=== PATIENT | male | born 1970 | race Caucasian/White ===

== ENCOUNTER → 2018-07-15 | Outpatient (CLI) | payer OTHER | END | disposition home or self-care (01) | LOC: CFH 08:49 | PROVIDERS: ATTEND Nurse Practitioner | DX: Z12.2 Encounter for screening for malignant neoplasm of respiratory organs (principal); R91.1 Solitary pulmonary nodule; Z87.891 Personal history of nicotine dependence | CPT/HCPCS: G0297 ==

== ENCOUNTER → 2019-02-11 | Outpatient (CLI) | payer OTHER | END | disposition home or self-care (01) | LOC: RAD 09:38 | PROVIDERS: ATTEND Nurse Practitioner | DX: Z12.2 Encounter for screening for malignant neoplasm of respiratory organs (principal); R91.8 Other nonspecific abnormal finding of lung field; Z87.891 Personal history of nicotine dependence | CPT/HCPCS: G0297 ==

== ENCOUNTER → 2019-09-21 | Outpatient (CLI) | payer OTHER | END | disposition home or self-care (01) | LOC: CFH 07:37 | PROVIDERS: ATTEND Nurse Practitioner | DX: R91.8 Other nonspecific abnormal finding of lung field (principal) | CPT/HCPCS: 71250 ==

== ENCOUNTER → 2019-12-29 | Outpatient (CLI) | payer OTHER | END | disposition home or self-care (01) | LOC: PETCFH 08:17 | PROVIDERS: ATTEND Nurse Practitioner | DX: R91.1 Solitary pulmonary nodule (principal); J43.9 Emphysema, unspecified; R59.0 Localized enlarged lymph nodes | CPT/HCPCS: 78815; A9552 ==

== ENCOUNTER 2020-01-18 12:37 | Outpatient (CLI) | payer OTHER ==
[2020-01-19] MEDS ORDERED: ALBU90AE INH (13:40)
[2020-01-19] MEDS ORDERED: DIPH-419 PO (13:40)
[2020-01-19] MEDS ORDERED: VENL150C PO (13:40)
[2020-01-19] MEDS ORDERED: depakote PO (13:40)
[2020-01-19] MEDS ORDERED: ATOR20TA37 PO (13:40)
[2020-01-19] MEDS ORDERED: LISI-167 PO (13:40)
[2020-01-19] MEDS ORDERED: VENL75CA PO (13:40)
[2020-01-19] MEDS ORDERED: TIOT18CA INH (13:40)
== END 2020-01-18 23:59 | disposition home or self-care (01) ==
LOC: RAD 12:37
PROVIDERS: ATTEND Internal Medicine
DX: R91.8 Other nonspecific abnormal finding of lung field (principal); R59.0 Localized enlarged lymph nodes
CPT/HCPCS: 71250

== ENCOUNTER 2020-01-20 11:40 | Day surgery (SDC) | payer OTHER ==
[~2020-01-20] VITALS: Ht 172.7 cm; Wt 82.4 kg
[~2020-01-20 11:40] MED LIST: ALBU90AE INH; ATOR20TA37 PO; DIPH-419 PO; LISI-167 PO; TIOT18CA INH; VENL150C PO; VENL75CA PO; depakote PO
[2020-01-20 11:55] VITALS: BP 145/95
[2020-01-20] MEDS ORDERED: LACTATED RINGERS 1,000 ML IV ONE (11:57)
[2020-01-20] MEDS ORDERED: CHLORHEXIDINE 15 ML UDC MM STA (12:01)
[2020-01-20 12:28] LABS: ALANINE AMINOTRANSFERASE 48 U/L (12-78); ALBUMIN 3.5 g/dL (3.4-5.0); ANION GAP 6 mmol/L (5-15); CALCIUM 8.6 mg/dL (8.5-10.1); CHLORIDE 109 mmol/L (98-107)
[2020-01-20 12:31] LABS: ALKALINE PHOSPHATASE 78 U/L (45-117); BILIRUBIN,TOTAL 0.8 mg/dL (0.2-1.0); CREATININE 0.98 mg/dL (0.7-1.3); TOTAL PROTEIN 7.4 g/dL (6.4-8.2)
[2020-01-20] MEDS ORDERED: MIDAZOLAM 1 MG/ML, 2ML ONE (13:27)
[2020-01-20] MEDS ORDERED: FENTANYL PF 250 MCG/5ML ONE (13:28)
[2020-01-20] MEDS ORDERED: DEXAMETHASONE 4 MG/ML, 1ML ONE (15:26)
[2020-01-20] MEDS ORDERED: ROCURONIUM 10MG/ML,5ML ONE (15:27)
[2020-01-20] MEDS ORDERED: ONDANSETRON 2MG/ML, 2ML IV PRN (16:30)
[2020-01-20] MEDS ORDERED: MEPERIDINE/PF 25MG/ML,1ML IVPush PRN (16:30)
[2020-01-20] MEDS ORDERED: PROMETHAZINE 25 MG/ML, 1ML IV PRN (16:30)
[2020-01-20] MEDS ORDERED: OXYcodone 5 MG/5 ML ORAL.SOL UDC PO PRN (16:30)
[2020-01-20] MEDS ORDERED: LABETALOL 5MG/ML, 20ML IV PRN (16:30)
[2020-01-20] MEDS ORDERED: HYDROmorphone 2 MG/ML, 1ML IVPush PRN (16:30)
[2020-01-20] MEDS ORDERED: FENTANYL PF 100 MCG/2ML IV PRN (16:30)
[2020-01-20] MEDS ORDERED: MIDAZOLAM 1 MG/ML, 2ML IV PRN (16:30)
[2020-01-20] MEDS ORDERED: hydrALAzine 20 MG/ML, 1ML IV PRN (16:30)
[2020-01-20] MEDS ORDERED: ACETAMINOPHEN 325 MG TABLET PO PRN (16:30)
[2020-01-20] MEDS ORDERED: PROPOFOL 10 MG/ML, 20ML ONE (16:48)
[2020-01-20] MEDS ORDERED: SUCCINYLCHOLINE 20 MG/ML, 10ML ONE (16:48)
[2020-01-20] MEDS ORDERED: ONDANSETRON 2MG/ML, 2ML ONE (16:48)
[2020-01-20 18:47] VITALS: BP 116/80
[2020-02-03] MEDS ORDERED: DIVA-59 PO (11:21)
[2020-02-03] MEDS ORDERED: LISI-170 PO (11:21)
== END 2020-01-20 19:45 | disposition home or self-care (01) ==
LOC: OR 11:40 → 4NE 18:12 → OR 19:45
PROVIDERS: ATTEND Internal Medicine
DX: R91.8 Other nonspecific abnormal finding of lung field (principal); R59.0 Localized enlarged lymph nodes; J44.9 Chronic obstructive pulmonary disease, unspecified; G47.33 Obstructive sleep apnea (adult) (pediatric); E88.01 Alpha-1-antitrypsin deficiency; I10 Essential (primary) hypertension; F32.9 Major depressive disorder, single episode, unspecified; F41.9 Anxiety disorder, unspecified; Z79.899 Other long term (current) drug therapy; Z87.891 Personal history of nicotine dependence; Z88.8 Allergy status to other drugs, medicaments and biological substances
CPT/HCPCS: 31624; 31627; 31628; 31652; 36415; 71045; 80053; 87015; 87070; 87102; 87116; 87205; 87206; 88112; 88172; 88173; 88177; 88305; 93005; J0330; J1100; J2250; J2405; J2704; J3010; J7120; 31625; 76000; G0378

== ENCOUNTER → 2020-02-03 | Outpatient (CLI) | payer OTHER ==
[~2020-02-03] MED LIST changes: +DIVA-59 PO; +LISI-170 PO
[2020-02-03 11:48] LABS: BASOPHILS # (AUTO) 0.04 x10^3/uL (0-0.1); BASOPHILS % (AUTO) 0 % (0-1); EOSINOPHILS # (AUTO) 0.09 x10^3/uL (0-0.4); EOSINOPHILS % (AUTO) 1 % (1-7); LYMPHOCYTES % (AUTO) 28 % (22-44); MD NO; MEAN CORPUSCULAR HEMOGLOBIN 34.3 pg (27.5-34.5); MEAN CORPUSCULAR HGB CONC 33.6 g/dL (33.2-36.2); MEAN CORPUSCULAR VOLUME 102.2 fL (81-97); MEAN PLATELET VOLUME 6.7 fL (7.4-10.4); MONOCYTES # (AUTO) 0.61 x10^3/uL (0.2-0.8); MONOCYTES % (AUTO) 6 % (2-9); NEUTROPHILS # (AUTO) 6.78 x10^3/uL (1.8-6.8); NEUTROPHILS % (AUTO) 65 % (42-75); PLATELET COUNT 246 x10^3/uL (130-400); RED BLOOD COUNT 4.95 x10^6/uL (4.38-5.82); RED CELL DISTRIBUTION WIDTH 13.6 % (9.4-14.8)
[2020-02-03 15:14] LABS: ALANINE AMINOTRANSFERASE 55 U/L (12-78); ALBUMIN 3.9 g/dL (3.4-5.0); ANION GAP 6 mmol/L (5-15); CALCIUM 9.5 mg/dL (8.5-10.1); CHLORIDE 104 mmol/L (98-107); CREATININE 1.18 mg/dL (0.7-1.3)
[2020-02-03 15:17] LABS: ALKALINE PHOSPHATASE 83 U/L (45-117); BILIRUBIN,TOTAL 0.8 mg/dL (0.2-1.0); TOTAL PROTEIN 7.9 g/dL (6.4-8.2)
== END | disposition home or self-care (01) ==
LOC: STAR 10:43
PROVIDERS: ATTEND Surgery
DX: Z01.818 Encounter for other preprocedural examination (principal); R00.0 Tachycardia, unspecified; I51.7 Cardiomegaly
CPT/HCPCS: 36415; 80053; 85025; 93005; U0001

== ENCOUNTER 2020-02-08 07:58 | Inpatient (IN) | payer OTHER ==
[~2020-02-08] VITALS: Ht 172.7 cm; Wt 91.0 kg
[2020-02-08] MEDS ORDERED: LACTATED RINGERS 1,000 ML IV SCH (08:17)
[2020-02-08 08:19] VITALS: BP 127/86
[2020-02-08] MEDS ORDERED: CHLORHEXIDINE 15 ML UDC MM ONE (08:30)
[2020-02-08] MEDS ORDERED: MIDAZOLAM 1 MG/ML, 2ML ONE (08:37)
[2020-02-08] MEDS ORDERED: FENTANYL PF 100 MCG/2ML ONE ×3 (08:37→12:58)
[2020-02-08] MEDS ORDERED: ONDANSETRON 2MG/ML, 2ML ONE (08:38)
[2020-02-08] MEDS ORDERED: DEXAMETHASONE 4 MG/ML, 1ML ONE (08:38)
[2020-02-08] MEDS ORDERED: CEFAZOLIN 1,000 MG ONE (08:38)
[2020-02-08] MEDS ORDERED: ROCURONIUM 10MG/ML,5ML ONE (08:38)
[2020-02-08] MEDS ORDERED: NEOSTIGMINE 1 MG/ML, 10ML ONE (08:38)
[2020-02-08] MEDS ORDERED: PROPOFOL 10 MG/ML, 20ML ONE (08:38)
[2020-02-08] MEDS ORDERED: GLYCOPYRROLATE 0.2MG/1ML, 5ML ONE (08:38)
[2020-02-08] MEDS ORDERED: SUCCINYLCHOLINE 20 MG/ML, 10ML ONE (08:38)
[2020-02-08] MEDS ORDERED: BUPIVACAINE/PF-EPI 0.5% 1:200K ONE (09:20)
[2020-02-08] MEDS ORDERED: PHENYLEPHRINE 10 MG/ML ONE (09:48)
[2020-02-08] MEDS ORDERED: EPINEPHRINE 1 MG/ML, 1ML ONE (09:48)
[2020-02-08] MEDS ORDERED: VASOPRESSIN 20 UNIT/ML, 1ML ONE (09:48)
[2020-02-08] MEDS ORDERED: EPHEDRINE 50 MG/ML, 1ML ONE (09:48)
[2020-02-08] MEDS ORDERED: BUPIVACAINE/PF-EPI 0.5% 1:200K INFIL ONE (10:40)
[2020-02-08] MEDS ORDERED: ALBUTEROL SULFATE 2.5 MG/3 ML ONE (11:10)
[2020-02-08] MEDS ORDERED: ALBUTEROL/IPRATROPIUM 2.5MG/0.5MG, 3 ML NPPB PRN (11:30)
[2020-02-08] MEDS ORDERED: PROMETHAZINE 25 MG/ML, 1ML IV PRN (11:30)
[2020-02-08] MEDS ORDERED: HYDROmorphone 2 MG/ML, 1ML IVPush PRN (11:30)
[2020-02-08] MEDS ORDERED: OXYcodone 5 MG/5 ML ORAL.SOL UDC PO PRN (11:30)
[2020-02-08] MEDS ORDERED: MEPERIDINE/PF 25MG/ML,1ML IVPush PRN (11:30)
[2020-02-08] MEDS ORDERED: ACETAMINOPHEN 325 MG TABLET PO PRN (11:30)
[2020-02-08] MEDS ORDERED: DIPHENHYDRAMINE 50 MG/ML, 1ML IV PRN (13:00)
[2020-02-08] MEDS ORDERED: HYDROmorphone PCA 30 MG/30 ML IV PRN (13:00)
[2020-02-08] MEDS ORDERED: ONDANSETRON 2MG/ML, 2ML IVPush PRN (13:00)
[2020-02-08] MEDS ORDERED: ENALAPRILAT 1.25 MG/ML, 2ML IV PRN (13:00)
[2020-02-08] MEDS ORDERED: LORazepam 2 MG/ML, 1ML IV PRN (13:00)
[2020-02-08] MEDS ORDERED: hydrALAzine 20 MG/ML, 1ML IV PRN (13:00)
[2020-02-08] MEDS: FENTANYL PF 100 MCG/2ML IV PRN ×3 (13:01→13:13)
[2020-02-08] MEDS ORDERED: LORazepam 2 MG/ML, 1ML ONE (13:14)
[2020-02-08] MEDS ORDERED: HYDROmorphone 1 MG/ML, 1ML INJ ONE (13:14)
[2020-02-08] MEDS ORDERED: LACTATED RINGERS 500 ML IVBOLUS ONE (14:30)
[2020-02-08 15:00] VITALS: BP 103/65
[2020-02-08] MEDS: ENOXAPARIN 40 MG/0.4 ML SQ SCH ×2 (15:00→15:52)
[2020-02-08] MEDS ORDERED: ALBUTEROL SULFATE 2.5 MG/3 ML NPPB PRN (15:30)
[2020-02-08] MEDS: IBUPROFEN 800 MG TABLET PO SCH ×2 (15:51→21:03)
[2020-02-08] MEDS: ACETAMINOPHEN 500 MG TABLET PO SCH ×2 (15:51→21:03)
[2020-02-08] MEDS: VENLAFAXINE 75 MG CAP ER PO SCH ×2 (15:53→21:03)
[2020-02-08] MEDS: POTASSIUM CHLORIDE 20 MEQ in D5%-0.45% NACL 1,000 ML IV SCH (17:16)
[2020-02-08] MEDS: CEFAZOLIN PMX 2GM/50ML 50 ML IVPB SCH (17:16)
[2020-02-08 18:46] VITALS: BP 109/75
[2020-02-08] MEDS: IPRATROPIUM 0.5 MG/2.5 ML INHA NPPB SCH (18:53)
[2020-02-08] MEDS: DIVALPROEX 250 MG TABLET.DR PO SCH (21:03)
[2020-02-08 23:45] VITALS: BP 111/72
[2020-02-09] MEDS: CEFAZOLIN PMX 2GM/50ML 50 ML IVPB SCH (02:00)
[2020-02-09] MEDS: ACETAMINOPHEN 500 MG TABLET PO SCH ×4 (03:35→20:44)
[2020-02-09] MEDS: POTASSIUM CHLORIDE 20 MEQ in D5%-0.45% NACL 1,000 ML IV SCH ×2 (03:35→09:03)
[2020-02-09 03:38] VITALS: BP 105/71
[2020-02-09 06:07] LABS: ANION GAP 6 mmol/L (5-15); CALCIUM 7.8 mg/dL (8.5-10.1); CHLORIDE 108 mmol/L (98-107); CREATININE 1.23 mg/dL (0.7-1.3)
[2020-02-09 06:14] LABS: BASOPHILS # (AUTO) 0.01 x10^3/uL (0-0.1); BASOPHILS % (AUTO) 0 % (0-1); EOSINOPHILS % (AUTO) 0 % (1-7); LYMPHOCYTES # (AUTO) 0.79 x10^3/uL (1-3.4); LYMPHOCYTES % (AUTO) 5 % (22-44); MD NO; MEAN CORPUSCULAR HEMOGLOBIN 34.6 pg (27.5-34.5); MEAN CORPUSCULAR HGB CONC 33.2 g/dL (33.2-36.2); MEAN CORPUSCULAR VOLUME 104.3 fL (81-97); MEAN PLATELET VOLUME 7.1 fL (7.4-10.4); MONOCYTES # (AUTO) 0.58 x10^3/uL (0.2-0.8); MONOCYTES % (AUTO) 4 % (2-9); NEUTROPHILS # (AUTO) 14.41 x10^3/uL (1.8-6.8); NEUTROPHILS % (AUTO) 91 % (42-75); PLATELET COUNT 226 x10^3/uL (130-400); RED BLOOD COUNT 4.07 x10^6/uL (4.38-5.82); RED CELL DISTRIBUTION WIDTH 13.9 % (9.4-14.8)
[2020-02-09] MEDS: IPRATROPIUM 0.5 MG/2.5 ML INHA NPPB SCH ×4 (06:55→20:22)
[2020-02-09 07:05] VITALS: BP 108/64
[2020-02-09] MEDS: IBUPROFEN 800 MG TABLET PO SCH ×3 (09:03→20:44)
[2020-02-09] MEDS: DIVALPROEX 250 MG TABLET.DR PO SCH ×2 (09:03→20:44)
[2020-02-09] MEDS: VENLAFAXINE 75 MG CAP ER PO SCH ×3 (09:10→20:44)
[2020-02-09] MEDS: NICOTINE 21 MG/24 HR PATCH.TD24 TD SCH (10:44)
[2020-02-09] MEDS ORDERED: POTASSIUM CHLORIDE 20 MEQ in D5%-0.45% NACL 1,000 ML IV SCH (12:41)
[2020-02-09 13:04] VITALS: BP 115/73
[2020-02-09] MEDS: ENOXAPARIN 40 MG/0.4 ML SQ SCH (15:58)
[2020-02-09 19:34] VITALS: BP 120/77
[2020-02-10 00:46] VITALS: BP 128/78
[2020-02-10] MEDS: IPRATROPIUM 0.5 MG/2.5 ML INHA NPPB SCH ×4 (02:28→19:32)
[2020-02-10] MEDS: ACETAMINOPHEN 500 MG TABLET PO SCH ×4 (03:00→20:53)
[2020-02-10 07:35] VITALS: BP 132/77
[2020-02-10] MEDS: NICOTINE 21 MG/24 HR PATCH.TD24 TD SCH (09:18)
[2020-02-10] MEDS: VENLAFAXINE 75 MG CAP ER PO SCH ×3 (09:18→20:53)
[2020-02-10] MEDS: IBUPROFEN 800 MG TABLET PO SCH ×3 (09:18→20:53)
[2020-02-10] MEDS: DIVALPROEX 250 MG TABLET.DR PO SCH ×2 (09:18→20:53)
[2020-02-10] MEDS: OXYcodone IR 5MG TABLET PO PRN ×3 (09:30→20:54)
[2020-02-10 13:02] VITALS: BP 121/75
[2020-02-10] MEDS: ENOXAPARIN 40 MG/0.4 ML SQ SCH (16:08)
[2020-02-10 20:17] VITALS: BP 126/79
[2020-02-11 01:25] VITALS: BP 123/87
[2020-02-11] MEDS: ACETAMINOPHEN 500 MG TABLET PO SCH ×2 (03:34→09:08)
[2020-02-11] MEDS: OXYcodone IR 5MG TABLET PO PRN ×2 (03:34→09:08)
[2020-02-11] MEDS: IPRATROPIUM 0.5 MG/2.5 ML INHA NPPB SCH ×2 (03:45→09:37)
[2020-02-11 06:50] VITALS: BP 145/92
[2020-02-11] MEDS: VENLAFAXINE 75 MG CAP ER PO SCH (09:08)
[2020-02-11] MEDS: IBUPROFEN 800 MG TABLET PO SCH (09:08)
[2020-02-11] MEDS: NICOTINE 21 MG/24 HR PATCH.TD24 TD SCH (09:09)
[2020-02-11] MEDS: DIVALPROEX 250 MG TABLET.DR PO SCH (09:09)
[2020-02-11] MEDS ORDERED: IBUP-1223 PO (10:12)
[2020-02-11] MEDS ORDERED: ACET-1600 PO (10:12)
[2020-02-11] MEDS ORDERED: OXYC5TAB3 PO (10:13)
== END 2020-02-11 10:37 | disposition home or self-care (01) | DRG 165 ==
LOC: ORIP 07:58 → 4NE 14:55
PROVIDERS: ADMIT Surgery; ATTEND Surgery
PROC: 07B74ZZ Excision of Thorax Lymphatic, Percutaneous Endoscopic Approach (ICD-10-PCS; 2020-02-08)
PROC: 03HY32Z Insertion of Monitoring Device into Upper Artery, Percutaneous Approach (ICD-10-PCS; 2020-02-08)
PROC: 0BTG4ZZ Resection of Left Upper Lung Lobe, Percutaneous Endoscopic Approach (ICD-10-PCS; principal; 2020-02-08 10:00)
DX: R91.8 Other nonspecific abnormal finding of lung field (principal); I10 Essential (primary) hypertension; J44.9 Chronic obstructive pulmonary disease, unspecified; F32.9 Major depressive disorder, single episode, unspecified; E78.00 Pure hypercholesterolemia, unspecified; F41.9 Anxiety disorder, unspecified; Z88.8 Allergy status to other drugs, medicaments and biological substances; Z82.49 Family history of ischemic heart disease and other diseases of the circulatory system; G47.33 Obstructive sleep apnea (adult) (pediatric)
CPT/HCPCS: 36415; J7644; 71045; 80048; 82040; 85025; 86850; 86900; 86923; 88305; 88309; 88341; 88342; 94640; C1729; G0378; J0171; J0690; J1100; J1170; J1650; J2250; J2405; J2704; J2710; J3010; J3480; C1760; J0330; J2060; J2370; J7120

== ENCOUNTER → 2020-08-09 | Outpatient (CLI) | payer OTHER ==
[~2020-08-09] MED LIST changes: +ACET-1600 PO; +IBUP-1223 PO; +OXYC5TAB3 PO
== END | disposition home or self-care (01) ==
LOC: CVU 15:24
PROVIDERS: ATTEND Internal Medicine Hematology & Oncology
DX: C34.12 Malignant neoplasm of upper lobe, left bronchus or lung (principal); R06.02 Shortness of breath; R06.00 Dyspnea, unspecified
CPT/HCPCS: 71046; 93306

== ENCOUNTER → 2020-12-05 | Outpatient (CLI) | payer OTHER ==
[~2020-12-05] MED LIST changes: +GADOTERATE 7.5 MMOL/15ML SYR ONE; -OXYC5TAB3 PO; +OXYC5TAB98 PO
== END | disposition home or self-care (01) ==
LOC: RAD 15:55
PROVIDERS: ATTEND Internal Medicine Hematology & Oncology
DX: Z51.11 Encounter for antineoplastic chemotherapy (principal); C34.12 Malignant neoplasm of upper lobe, left bronchus or lung; R51.9 Headache, unspecified; Z79.899 Other long term (current) drug therapy
CPT/HCPCS: 70553; A9575

== ENCOUNTER → 2021-02-22 | Outpatient (CLI) | payer OTHER | END | disposition home or self-care (01) | LOC: RAD 13:17 | PROVIDERS: ATTEND Physician Assistant Surgical | DX: M47.22 Other spondylosis with radiculopathy, cervical region (principal); M50.121 Cervical disc disorder at C4-C5 level with radiculopathy; M48.02 Spinal stenosis, cervical region | CPT/HCPCS: 72156; A9575 ==